=== PATIENT | female | born 1980 | race African-American/Black ===

== ENCOUNTER 2017-11-04 07:44 | Emergency (ER) | payer MEDICAID ==
[~2017-11-04] VITALS: Ht 165.1 cm; Wt 91.6 kg
[2017-11-04 07:52] VITALS: BP 118/73
[2017-11-04] MEDS: IBUPROFEN 800 MG TAB PO ONE (08:15)
[2017-11-04] MEDS: ONDANSETRON 4 MG ODT PO ONE (08:16)
[2017-11-04] MEDS: SUMAtriptan 6 MG/0.5 ML VIAL SUBQ ONE (08:16)
[2017-11-04] MEDS: PROCHLORPERAZINE 5 MG TAB PO ONE (08:46)
[2017-11-04 09:20] VITALS: BP 104/61
== END 2017-11-04 09:20 | disposition home or self-care (01) ==
LOC: MED 07:44
DX: G43.909 Migraine, unspecified, not intractable, without status migrainosus (principal); E11.9 Type 2 diabetes mellitus without complications; Z90.710 Acquired absence of both cervix and uterus; Z88.0 Allergy status to penicillin; Z88.2 Allergy status to sulfonamides; Z88.8 Allergy status to other drugs, medicaments and biological substances
CPT/HCPCS: 81025; 96372; 99284; J3030; Q0164; S0119

== ENCOUNTER 2021-03-22 17:20 | Emergency (ER) | payer MEDICAID, OTHER ==
[~2021-03-22] VITALS: Ht 162.6 cm; Wt 96.2 kg
[2021-03-22 17:25] VITALS: BP 150/89
[2021-03-22] MEDS ORDERED: ACETAMINOPHEN EXTRA STRENGTH 500 MG TAB PO ONE (18:10)
[2021-03-22 18:36] LABS: BASOPHILS % (AUTO) 0.5 % (0.0-2.0); EOSINOPHILS # (AUTO) 0.2 K/uL (0-0.4); EOSINOPHILS % (AUTO) 3.4 % (0.0-4.0); HEMATOCRIT 36.2 % (36-48); HEMOGLOBIN 11.5 g/dL (12.0-16.0); LYMPHOCYTES # (AUTO) 2.3 K/uL (2.5-16.5); LYMPHOCYTES % (AUTO) 40.6 % (20.5-51.1); MEAN CORPUSCULAR HEMOGLOBIN 25 pg (27-31); MEAN CORPUSCULAR HGB CONC 32 g/dL (33-37); MEAN CORPUSCULAR VOLUME 77.6 fL (80-94); MONOCYTES # (AUTO) 0.5 K/uL (0.8-1.0); MONOCYTES % (AUTO) 8.5 % (1.7-9.3); NEUTROPHILS # (AUTO) 2.7 K/uL (1.8-7.7); PLATELET COUNT (AUTO) 345 K/uL (140-450); RED BLOOD CELL COUNT(AUTO) 4.67 MIL/uL (4.20-5.40); RED CELL DISTRIBUTION WIDTH 14.9 % (11.6-13.7); WHITE BLOOD COUNT (AUTO) 5.7 K/uL (4.8-10.8)
--- NOTE | 2021-03-22 18:36 | NUR ---
40/F PRESENTS TO ED WITH C/O RIGHT SIDED WEAKNESS AND HEADACHE X1 WEEK. PATIENT STATES SHE WAS SEEN THIS WEEK BY HER DOCTOR FOR THE SAME SYMPTOMS AND WAS DX WITH AN "UNKNOWN INFECTION" AND DX WITH BELLS PALSY, STATES SHE WAS D/C WITH RX OF ANTIBIOTICS. PATIENT STATES 2 DAYS LATER BEGAN HAVING WORSENING HEADACHE RADIATING DOWN. PATIENT ALSO C/O BLURRED VISION FROM RIGHT EYE, PATIENT HAS OBVIOUS FACIAL DROOP AND RIGHT SIDED WEAKNESS, SENSATION AND STRENGTH DECREASED ON RIGHT SIDE. PATIENT REPORTS NAUSEA, DENIES V/D, SOB, CP, FEVER OR CHILLS. 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 NICOLAS AWARE OF PATIENT.
[2021-03-22 18:52] LABS: ALBUMIN 3.2 g/dL (3.4-5.0); ANION GAP 13.9 (8-16); CARBON DIOXIDE 25.9 mmol/L (21-32); CREATININE 0.7 mg/dL (0.6-1.3); POTASSIUM 3.8 mmol/L (3.5-5.1); TOTAL BILIRUBIN 0.3 mg/dL (0.0-1.0)
--- NOTE | 2021-03-22 19:00 | NUR ---
PATIENT AMBULATED TO RESTROOM WITH STEADY GAIT TO PROVIDE URINE SAMPLE.
--- NOTE | 2021-03-22 19:15 | NUR ---
Pt report given to FARAZ MENDEZ. Transfer of care at this time.
[2021-03-22 19:22] LABS: APPEARANCE,URINE CLEAR (CLEAR); BILIRUBIN,URINE NEGATIVE (NEGATIVE); BLOOD, URINE NEGATIVE (NEGATIVE); COLOR,URINE YELLOW (YELLOW); LEUKOCYTE ESTERASE ,URINE NEGATIVE (NEGATIVE); NITRITE, URINE NEGATIVE (NEGATIVE); UGLUCOSE NEGATIVE (NEGATIVE)
[2021-03-22 19:32] LABS: BARBITURATE, URINE NEGATIVE ng/ml (NEG <=200); BENZODIAZEPINE, URINE NEGATIVE ng/mL (NEG <=200); CANNABINOID, URINE NEGATIVE ng/mL (NEG <=50); COCAINE, URINE NEGATIVE ng/mL (NEG <=300); OPIATE, URINE NEGATIVE ng/mL (NEG <=2000); PHENCYCLIDINE SCREEN,URINE NEGATIVE ng/mL (NEG <=25)
[2021-03-22] MEDS ORDERED: ASPIRIN 325 MG TAB PO ONE (20:00)
[2021-03-22] MEDS ORDERED: MORPHINE SULFATE 2 MG/ML SYR IVP ONE (20:05)
--- NOTE | 2021-03-22 21:20 | NUR ---
REPORT GIVEN TO VILLAFUERTE AT THIS TIME. ADVISED TO TELL [facility] TO CONTACT WHEN THEY ARE ON THEIR WAY.
--- NOTE | 2021-03-22 21:33 | NUR ---
[facility] ARRIVED AT THIS TIME. CARE TRANSFERRED ONTO [facility], ADVISED TO CONTACT [facility] FOR ETA WHEN EN ROUTE. PATIENT HAS NO ACUTE CHANGES IN CONDITION, COAX4 AND NO ABNROMAL COMPLAINTS AT THIS TIME. CLEARED FOR TRANSFER BY ER . AND ACCEPTED BY [facility]
[2021-03-22 21:35] VITALS: BP 137/92
== END 2021-03-22 21:33 | disposition short-term general hospital (02) ==
LOC: MED 17:20
DX: R53.1 Weakness (principal); R29.810 Facial weakness; R20.0 Anesthesia of skin; E11.9 Type 2 diabetes mellitus without complications
CPT/HCPCS: 36415; 70450; 71045; 80053; 80305; 81003; 84484; 85025; 93005; 96374; 99285; J2270